=== PATIENT | male | born 1965 ===

== ENCOUNTER 2018-08-08 17:31 | Emergency (ER) | payer BC ==
--- OUTSIDE RECORDS SUMMARY | 2018-08-08 17:42 | XMS REPORT | Continuity of Care Document ---
:1965 External Reference #:[id number] Author Name Kd Melia Care Team Providers Name Role Phone Roland Oscar MD Primary Care Physician Unavailable Payers Date Identification Numbers Payment Provider Subscriber Policy Number: [id number] [facility] Chloe Louis PayID: [id number] [address] [place] [address] Problems Description No Active Problems Social History Type Date Description Comments Sex Unknown Allergies, Adverse Reactions, Alerts Description No Known Drug Allergies Medications Active Medications SIG Qnty Indications Ordering Provider Date Pentasa 3 tabs qAM, 2 Unknown 500mg Capsules ER tabs qpm, 3 tabs qHS History Medications Tramadol HCL 1-2 tablets by 30tabs Francesco Garcia MD 03/18/2018 - 50mg mouth every 6 06/14/2018 Tablets hours as needed pain Vital Signs Date Vital Result Comment 07/20/2018 3:19pm Height 72 inches 6'0" Heart Rate 76 /min BP Systolic 122 mmHg BP Diastolic 80 mmHg Respiratory Rate 18 /min Body Temperature 98.1 F Pain Level 5 06/15/2018 8:17am Height 72 inches 6'0" Heart Rate 82 /min BP Systolic 128 mmHg BP Diastolic 70 mmHg Respiratory Rate 18 /min Body Temperature 97.6 F Pain Level 0 05/04/2018 8:05am Height 72 inches 6'0" Weight 200.00 lb Patient stated Heart Rate 72 /min BP Systolic 118 mmHg BP Diastolic 74 mmHg Respiratory Rate 16 /min Pain Level 0 BMI (Body Mass Index) 27.1 kg/m2 04/06/2018 8:56am Height 72 inches 6'0" Heart Rate 80 /min BP Systolic 128 mmHg BP Diastolic 82 mmHg Respiratory Rate 18 /min Body Temperature 98.0 F Pain Level 2 02/24/2018 8:21am Height 72 inches 6'0" Weight 206.00 lb Heart Rate 76 /min Respiratory Rate 16 /min Body Temperature 97.3 F Pain Level 0 BMI (Body Mass Index) 27.9 kg/m2 01/06/2018 8:13am Height 72 inches 6'0" Weight 203.00 lb Heart Rate 91 /min BP Systolic 122 mmHg BP Diastolic 76 mmHg Respiratory Rate 18 /min Pain Level 9 BMI (Body Mass Index) 27.5 kg/m2 Results Test Date Facility Test Result H/L Range Note Laboratory test 03/18/2018 [facility] SEE RESULT 1 , [address] [place] [address] [phone] [id number] 2 SEE RESULT BELOW Name: MOISES [place] : [address]: Francesco Garcia MD Acct: [id number] Unit: [id number] AGE: 52 Location: [facility] Re03/18/18 SEX: M Status: DEP SDC SPEC: [id number] CA: 03/18/18-[address] [facility] [address]: Francesco Garcia MD REQ: [id number] RECD: 03/18/185240 STATUS: SOUT _ ORDERED: LEVEL 3 COMMENTS: [id number] FINAL DIAGNOSIS Wrist, right, excision: -- Ganglion cyst. PRE-OPERATIVE DIAGNOSIS Right wrist carpal tunnel syndrome, right wrist ganglion cyst GROSS DESCRIPTION The specimen is received in formalin labeled, Right Wrist Ganglion Mass, and consists of a 0.8 x 0.6 x 0.4 cm sharpe-white irregular rubbery fibrous tissue fragment which is inked, bisected and submitted entirely in one cassette. Signed by and Reported on: Carla Rodriguez MD 03/19/18 1503 END OF REPORT DEPARTMENT OF PATHOLOGY, [address] [place] [address] Jonah Abarca M.D. Director [facility] # [id number] Procedures Date Code Description Status 03/18/2018 53830 Carpal Tunnel Release Completed 03/18/2018 28391 Carpal Tunnel Release Completed 03/18/2018 50619 Excision Ganglion Wrist/ Dorsal Or Volar; Primary Completed 03/18/2018 95894 Excision Ganglion Wrist/ Dorsal Or Volar; Primary Completed Encounters Type Date Location Provider Dx Diagnosis Office Visit 01/06/2018 [facility] Francesco Garcia, G56.01 Carpal tunnel 8:00a Of Jg MEDINA syndrome, right upper limb M67.431 Ganglion, right wrist Plan of Treatment 07/20/2018 - Francesco Garcia MDG56.01 Carpal tunnel syndrome, right upper limbFollow up:Follow up: Pt will call and schedule after deciding about surgery
[2018-08-08 17:59] VITALS: BP 122/57
--- NOTE | 2018-08-08 18:14 | ED ---
Abdominal Pain/Male - HPI Summary HPI Summary: 52 yr old male with the complaint of right foot pain, fever chills, swelling and redness,and also upper abdominal pain and nausea. Onset of symptoms over the past few days. The patient states he has Chron's as well. - History of Current Complaint Chief Complaint: UCGeneralIllness Stated Complaint: RIGHT FOOT CONCERN/NAUSEA,VOMITING Time Seen by Provider: 08/08/18 18:05 Pain Intensity: 7 - Allergies/Home Medications Allergies/Adverse Reactions: Allergies Allergy/AdvReac Type Severity Reaction Status Date / Time codeine AdvReac Intermediate Nausea Verified 08/08/18 17:59 Home Medications: Home Medications Loperamide CAP* [Imodium CAP*] 4 mg PO DAILY 08/08/18 [History Confirmed ] Omeprazole CAP (NF) [Prilosec CAP* 20 MG] 40 mg PO DAILY 08/08/18 [History Confirmed 08/08/18] azaTHIOprine TAB(*) [Imuran TAB(*)] 50 mg PO DAILY 08/08/18 [History Confirmed 08/08/18] PMH/Surg Hx/FS Hx/Imm Hx Endocrine/Hematology History: Denies: Hx Diabetes, Hx Thyroid Disease Cardiovascular History: Denies: Hx Hypertension, Other Cardiovascular Problems/Disorders Respiratory History: Reports: Hx Asthma - rescue med Denies: Hx Chronic Obstructive Pulmonary Disease (COPD), Hx Sleep Apnea, Other Respiratory Problems/Disorders GI History: Reports: Hx Crohn's Disease Denies: Hx Ulcer, Other GI Disorders History: Denies: Hx Renal Disease, Other Problems/Disorders Musculoskeletal History: Reports: Hx Arthritis - hands, greater in right hand, Hx Tendonitis - Carpal tunnel right wrist, Other Musculoskeletal History - Right gangion cyst Sensory History: Reports: Hx Contacts or Glasses - Glasses Denies: Hx Hearing Aid Opthamlomology History: Reports: Hx Contacts or Glasses - Glasses Neurological History: Reports: Hx Seizures - age 3, took phenobarbital as a child until age 18 Denies: Other Neuro Impairments/Disorders Psychiatric History: Reports: Hx Anxiety - Surgical History Surgery Procedure, Year, and Place: Cholecystectomy. Right Thumb Dislocation. Right wrist fracture repair 1989. Tonsillectomy Hx Anesthesia Reactions: No Infectious Disease History: No Infectious Disease History: Denies: Hx Hepatitis, Hx Human Immunodeficiency Virus (HIV), History Other Infectious Disease, Traveled Outside the [place] in Last 30 Days - Family History Known Family History: Positive: None - Social History Alcohol Use: Occasionally Alcohol Amount: Had 2 beers tonight, 2 25oz Substance Use Type: Reports: None Smoking Status (MU): Former Smoker Type: Cigarettes Amount Used/How Often: 1 pack every few days Review of Systems Positive: Fever, Chills Positive: Abdominal Pain Positive: Other - foot pain and swelling All Other Systems Reviewed And Are Negative: Yes Physical Exam Triage Information Reviewed: Yes Vital Signs On Initial Exam: Initial Vitals Temp Pulse Resp BP Pulse Ox 101.7 F 80 16 122/57 97 08/08/18 17:55 08/08/18 17:55 08/08/18 17:55 08/08/18 17:55 08/08/18 17:55 Vital Signs Reviewed: Yes Appearance: Positive: Well-Appearing, No Pain Distress Skin: Positive: Other - right foot with erythema and STS to the 1st metatarsal area. Head/Face: Positive: Normal Head/Face Inspection Eyes: Positive: EOMI, MICHI ENT: Negative: Nasal congestion, Nasal drainage Neck: Positive: Nontender Respiratory/Lung Sounds: Positive: Clear to Auscultation, Breath Sounds Present Cardiovascular: Positive: RRR. Negative: Murmur Musculoskeletal: Positive: Strength/ROM Intact Neurological: Positive: Sensory/Motor Intact, Alert, Oriented to Person Place, Time, CN Intact II-III, Normal Gait, Speech Normal Psychiatric: Positive: Normal - Manpreet Coma Scale Best Eye Response: 4 - Spontaneous Best Motor Response: 6 - Obeys Commands Best Verbal Response: 5 - Oriented Coma Scale Total: 15 Diagnostics - Vital Signs Vital Signs Temp Pulse Resp BP Pulse Ox 08/08/18 17:55 101.7 F 80 16 122/57 97 - Laboratory Lab Statement: Any lab studies that have been ordered have been reviewed, and results considered in the medical decision making process. Abdominal Pain Male Course/Dx - Course Course Of Treatment: 52 yr old with fever, right foot redness and swelling and also abdominal pain with chrons' To the ER with further work up. The patient was offered an ambulance but the states she wants to drive him. - Diagnoses Provider Diagnoses: Bilateral upper abdominal pain, Cellulitis of right foot Discharge - Sign-Out/Discharge Documenting (check all that apply): Patient Departure All imaging exams completed and their final reports reviewed: No Studies - Discharge Plan Condition: Good Disposition: HOME-RECOMMEND TO ED Patient Education Materials: Acute Abdominal Pain (ED), Swollen Joint (ED) Referrals: Roland Oscar MD [Primary Care Provider] - Additional Instructions: You need to go to the ER now for further work up for your swollen red foot and abdominal pain. Do not delay going You were offered an ambulance but have stated you are driving yourself. - Billing Disposition and Condition Condition: GOOD Disposition: Home-Recommend to ED
== END 2018-08-08 18:27 | disposition home health service (06) ==
LOC: UCCORT 17:31
DX: R10.12 Left upper quadrant pain (principal); R10.11 Right upper quadrant pain; L03.115 Cellulitis of right lower limb; K50.90 Crohn's disease, unspecified, without complications; J45.909 Unspecified asthma, uncomplicated; Z87.891 Personal history of nicotine dependence
CPT/HCPCS: 99212; G0463

== ENCOUNTER → 2018-08-30 08:13 | Day surgery (SDC) | payer BC ==
[~2018-08-30 08:13] MED LIST: Buffered Lidocaine 1% SYRIN* 1 ML/SYRINGE INTRADERM ONE; DAPTOMYCIN 500 MG IVPB ONE; DAPTOmycin SDV(*) 500 MG in NS 0.9% 50 ML* 50 ML IVPB SCH; Ertapenem* 1 GM in NS 0.9% 50 ML* 50 ML IVPB ONE; Lactated Ringers 1000 ML Bag* 1,000 ML IV SCH; Lidocaine 2% PF* 10 ML AMP ONE; Midazolam* 1 MG/ML 5 ML VIAL (5 MG) ONE; Naloxone* 0.4 MG/ML 1 ML VIAL IV PRN; Propofol* 10 MG/ML 20 ML BTL ONE; Sodium Citrate/Citric Acid* 15 ML UDC ONE; Sodium Citrate/Citric Acid* 15 ML UDC PO ONE; ceFAZolin 2 GM in NS PREMIX(*) 2 GM/100 ML BAG IVPB ONE; fentaNYL* 50 MCG/ML 2 ML VIAL (100 MCG VIAL) ONE
[2018-08-30 14:19] VITALS: BP 117/80
--- NOTE | 2018-08-30 23:11 | OP ---
DATE OF OPERATION: 08/30/18 - [facility] DATE OF : 65 ATTENDING SURGEON: Francesco Brasher MD. DUST HANDLER: Sky Lu PA-C. PRE-OP DIAGNOSIS: Previous septic arthritis, right first MTP joint. POST-OP DIAGNOSIS: Previous septic arthritis, right first MTP joint. OPERATIVE PROCEDURE: Debridement, synovectomy, right first MTP joint. DESCRIPTION OF PROCEDURE: The patient was taken to the operating room where a longitudinal incision was made over the first MTP joint medial to the extensor tendons. We incised down through the capsule and a copious amount of synovium was hypertrophied, and we did a synovectomy over the dorsal 50% of the joint. This was sent to Pathology. Cultures were sent as well. We irrigated the joint with a couple of liters of saline. There were some areas of eburnated bone exposed through the cartilage. I did not see any direct defects in the subchondral bone. We then closed the capsule loosely with 3-0 Monocryl, skin with interrupted 4-0 nylon sutures. [id number]/[facility] #: [id number] [facility]
== END | disposition home or self-care (01) ==
LOC: OR 08:13
PROVIDERS: ATTEND Orthopaedic Surgery
DX: M65.871 Other synovitis and tenosynovitis, right ankle and foot (principal); J45.909 Unspecified asthma, uncomplicated; K21.9 Gastro-esophageal reflux disease without esophagitis; K50.90 Crohn's disease, unspecified, without complications; F41.9 Anxiety disorder, unspecified
CPT/HCPCS: 87070; 87073; 87205; 88304; A9270-GY; J0690; J0878; J1335; J2001; J2250; J2704; J3010